=== PATIENT | female | born 1970 | race Caucasian/White ===

== ENCOUNTER 2020-07-25 08:14 | Emergency (ER) | payer MEDICAID ==
[~2020-07-25] VITALS: Ht 185.4 cm; Wt 106.8 kg
[~2020-07-25 08:14] MED LIST: ALPR1TAB6 PO; AMIT50TA PO; AMIT75TA PO; AMOX1TAB64 PO; CEPH750C9 PO; CITA40TA12 PO; DIVA500T17 PO; DIVA500T2 PO; HYDR-3240 PO; INSU100V8 SQ; INSULIN LISPRO; LISINOPRIL; METF10002 PO; OMEP-110 PO; OXYC1TAB18 PO; POLY17PO5 PO; SULF15DR5 EACHEYE; SULF1TAB24 PO; TRAZ-175 PO; VENL50TA42 PO
--- NOTE | 2020-07-25 08:56 | NUR ---
PT GIVEN D/C INSTRUCTIONS, VERBALIZED UNDERSTANDING. PT HAS STEADY GAIT UPON D/C, HAS ALL OWN BELONGINGS.
[2020-07-25 08:57] VITALS: BP 141/86
== END 2020-07-25 08:59 | disposition home or self-care (01) ==
LOC: ED 08:30
DX: L01.01 Non-bullous impetigo (principal); F17.210 Nicotine dependence, cigarettes, uncomplicated; I10 Essential (primary) hypertension; E11.9 Type 2 diabetes mellitus without complications; E78.00 Pure hypercholesterolemia, unspecified
CPT/HCPCS: 82962; 99406